=== PATIENT | male | born 1985 | race African-American/Black ===

== ENCOUNTER 2018-11-24 10:34 | Inpatient (IN) | payer OTHER ==
[2018-11-24 12:21] VITALS: BMI 22.4
--- NOTE | 2018-11-24 14:48 | HP ---
"CIWA Score - Admission Criteria [facility] Guidelines: Admission for Medically Managed Detox: Requires at least one of the followin. CIWA greater than 12 2. Seizures within the past 24 hours 3. Delirium tremens within the past 24 hours 4. Hallucinations within the past 24 hours 5. Acute intervention needed for co occurring medical disorder 6. Acute intervention needed for co occurring psychiatric disorder 7. Severe withdrawal that cannot be handled at a lower level of care (continued vomiting, continued diarrhea, abnormal vital signs) requiring intravenous medication and/or fluids 8. Admission ROS [facility] - HPI Allergies/Adverse Reactions: Allergies Allergy/AdvReac Type Severity Reaction Status Date / Time No Known Allergies Allergy Verified 11/24/18 12:15 History of Present Illness: pt here requesting rehab from etoh use , claims he was referred by outpt program , etoh use 2 pints/day since age 10 , latest use 1-2 week ago , went to detox , does not recall name . tobacco : 1/2 ppd cannabis : denies pmhx : chronic knee pain , asthma pshx : knee surgery , spine 2/2 scoliosis This report was requested by: Christy Medeiros | Reference #: [id number] Others' Prescriptions Patient Name: Jorje Henderson Date: 1985 Address: [place] [address] Sex: Male Rx Written Rx Dispensed Drug Quantity Days Supply Prescriber Name 08/17/2018 08/17/2018 chlordiazepoxide 25 mg capsule 24 5 Jesse Aiken) Patient Name: Jorje Henderson Date: 1985 Address: [place] [address] Sex: Male Rx Written Rx Dispensed Drug Quantity Days Supply Prescriber Name 03/15/2018 03/15/2018 chlordiazepoxide 25 mg capsule 8 2 Caleb Emanuel Exam Limitations: No Limitations - Ebola screening Have you traveled outside of the country in the last 21 days: No Have you had contact with anyone from an Ebola affected area: No Do you have a fever: No - Review of Systems Constitutional: No Symptoms Reported EENT: reports: No Symptoms Reported Respiratory: reports: No Symptoms reported Cardiac: reports: No Symptoms Reported GI: reports: No Symptoms Reported : reports: No Symptoms Reported Musculoskeletal: reports: Joint Pain (r knee chronic pain) Integumentary: reports: No Symptoms Reported Neuro: reports: No Symptoms reported Endocrine: reports: No Symptoms Reported Psychiatric: reports: Orientated x3 Patient History - Smoking Cessation Smoking history: Current every day smoker Have you smoked in the past 12 months: Yes Hx Chewing Tobacco Use: No Initiated information on smoking cessation: No - Substances abused Alcohol Substance route: Oral Frequency: Daily Amount used: 1 -2 PINTS [place] Age of first use: 10 Date of last use: 11/21/18 Admission Physical Exam [facility] - Vital Signs Vital Signs: Vital Signs - 24 hr 11/24/18 12:17 Temperature 97.8 F Pulse Rate 94 H Respiratory 16 Rate Blood Pressure 127/77 - Physical General Appearance: Yes: No Apparent Distress HEENTM: Yes: Normocephalic, Normal Voice Respiratory: Yes: Lungs Clear, Normal Breath Sounds, No Respiratory Distress, No Accessory Muscle Use Neck: Yes: No masses,lesions,Nodules, Trachea in good position Cardiology: Yes: Regular Rhythm, Regular Rate, S1, S2 Abdominal: Yes: Non Tender, Soft Musculoskeletal: Yes: Gait Steady Extremities: Yes: Normal Range of Motion, Non-Tender Neurological: Yes: Alert, Motor Strength 5/5, Normal Mood/Affect Integumentary: Yes: Warm - Diagnostic (1) Alcohol abuse Current Visit: Yes Status: Acute Breathalyzer - Breathalyzer Breathalyzer: 0 Urine Drug Screen - Test Device Lot number: [id number] Expiration date: 07/27/20 - Control Is test valid?: Yes - Results Drug screen NEGATIVE: No Urine drug screen results: THC-Marijuana Inpatient Rehab Admission - Rehab Decision to Admit Inpatient rehab admission?: No"
[2018-11-24] MEDS ORDERED: MAG HYDROX/AL HYDROX/SIMETH 30 ML UNIT-DOSE CUP PO PRN (15:00)
[2018-11-24] MEDS ORDERED: MENTHOL/PHENOL 1 EACH UD MM PRN (15:00)
[2018-11-24] MEDS ORDERED: MAGNESIUM CITRATE 300 ML BOTTLE PO PRN (15:00)
[2018-11-24] MEDS ORDERED: NICOTINE POLACRILEX 2 MG GUM BUC PRN (15:00)
[2018-11-24] MEDS ORDERED: guaiFENesin 200 MG/10 ML 10 ML UNIT-DOSE CUPS PO PRN (15:00)
[2018-11-24] MEDS ORDERED: IBUPROFEN 400 MG TABLET (FP) PO PRN (15:00)
[2018-11-24] MEDS ORDERED: MAGNESIUM HYDROX 2400MG/30ML ORAL SUSPENSION 30 ML CUP PO PRN (15:00)
[2018-11-24] MEDS ORDERED: ACETAMINOPHEN 325 MG TABLET (FP) PO PRN (15:00)
[2018-11-24] MEDS ORDERED: P-EPHED 60MG/TRIPROLIDI 2.5MG TABLET PO PRN (15:00)
[2018-11-24] MEDS ORDERED: ALBUTEROL SO4 0.083% IH SOL 2.5 MG/3 ML VIAL.NEB. NEB PRN (15:01)
[2018-11-24] MEDS ORDERED: TUBERCULIN PPD 5 TU/0.1ML VIAL ID ONE (16:41)
[2018-11-24 17:30] LABS: HEMATOCRIT 40.5 % (35.4-49); MCH 30.4 pg (25.7-33.7); MCHC 34.6 g/dl (32.0-35.9); MEAN CELL VOLUME 87.7 fl (80-96); MEAN PLT VOLUME 9.4 fl (7.5-11.1); PLATELET COUNT 179 K/MM3 (134-434); RBC 4.62 M/mm3 (4.00-5.60); RDW 14.3 % (11.9-15.9); WHITE BLOOD COUNT 7.8 K/mm3 (4.0-10.0)
[2018-11-24 17:41] LABS: ALBUMIN 4.2 g/dl (3.4-5.0); BLOOD UREA NITROGEN 15.9 mg/dL (7-18); CALCIUM 9.2 mg/dL (8.5-10.1); CREATININE 1.1 mg/dL (0.55-1.3); TOT PROT 7.7 g/dl (6.4-8.2)
[2018-11-24] MEDS: THIAMINE HCL 100 MG TABLET (FP) PO SCH (21:48)
[2018-11-24] MEDS: MELATONIN 5 MG TABLETS PO PRN (21:48)
[2018-11-25] MEDS: PRENATAL VITAMINS W/ FOLIC ACID TABLET (FP) PO SCH (10:30)
[2018-11-25] MEDS: THIAMINE HCL 100 MG TABLET (FP) PO SCH (21:53)
[2018-11-25] MEDS: MELATONIN 5 MG TABLETS PO PRN (21:53)
[2018-11-26 10:24] LABS: URINE APPEARANCE CLEAR; URINE BILIRUBIN NEGATIVE (NEGATIVE); URINE COLOR YELLOW; URINE GLUCOSE (UA) NEGATIVE (NEGATIVE); URINE KETONE NEGATIVE (NEGATIVE); URINE LEUK ESTERASE NEGATIVE (NEGATIVE); URINE NITRITE NEGATIVE (NEGATIVE); URINE PROTEIN NEGATIVE (NEGATIVE)
[2018-11-26] MEDS: PRENATAL VITAMINS W/ FOLIC ACID TABLET (FP) PO SCH (10:42)
[2018-11-26] MEDS: MELATONIN 5 MG TABLETS PO PRN (21:45)
[2018-11-26] MEDS: THIAMINE HCL 100 MG TABLET (FP) PO SCH (21:45)
[2018-11-26] MEDS: hydrOXYzine PAMOATE 25 MG CAPSULE (FP) PO PRN (21:46)
[2018-11-27] MEDS: PRENATAL VITAMINS W/ FOLIC ACID TABLET (FP) PO SCH (11:01)
--- NOTE | 2018-11-27 14:53 | PN ---
[facility] Progress Note Note: NEW PT ADMITTED TO REHAB ON 11/24/18 FROM C ADMISSIONS. PT C/O MUSCLE ACHES AND SPASMS. ALERT O X 3. OOB AMBULATING WITH STEADY GAIT. Vital Signs - 24 hr 11/27/18 11/27/18 11/27/18 00:30 03:30 07:01 Temperature 97.8 F Pulse Rate 55 L Respiratory 18 18 16 Rate Blood Pressure 135/80 Laboratory Tests 11/24/18 11/24/18 11/24/18 15:20 15:20 15:20 WBC 7.8 RBC 4.62 Hgb 14.0 Hct 40.5 MCV 87.7 MCH 30.4 MCHC 34.6 RDW 14.3 Plt Count 179 MPV 9.4 Sodium 137 Potassium 4.0 Chloride 104 Carbon Dioxide 27 Anion Gap 6 L BUN 15.9 Creatinine 1.1 Est GFR (CKD-EPI)AfAm 100.97 Est GFR (CKD-EPI)NonAf 87.12 Random Glucose 76 Calcium 9.2 Total Bilirubin 1.0 AST 24 ALT 25 Alkaline Phosphatase 58 Total Protein 7.7 Albumin 4.2 Urine Color Urine Appearance Urine pH Ur Specific [place] Urine Protein Urine Glucose (UA) Urine Ketones Urine Blood Urine Nitrite Urine Bilirubin Urine Urobilinogen Ur Leukocyte Esterase RPR Titer Nonreactive 11/26/18 08:00 WBC RBC Hgb Hct MCV MCH MCHC RDW Plt Count MPV Sodium Potassium Chloride Carbon Dioxide Anion Gap BUN Creatinine Est GFR (CKD-EPI)AfAm Est GFR (CKD-EPI)NonAf Random Glucose Calcium Total Bilirubin AST ALT Alkaline Phosphatase Total Protein Albumin Urine Color Yellow Urine Appearance Clear Urine pH 6.0 Ur Specific [place] 1.022 Urine Protein Negative Urine Glucose (UA) Negative Urine Ketones Negative Urine Blood Negative Urine Nitrite Negative Urine Bilirubin Negative Urine Urobilinogen 1.0 Ur Leukocyte Esterase Negative RPR Titer PLAN:ROBAXIN 500 MG PO TID PRN FOR MUSCLE SPASM. MOTRIN PRN FOR PAIN
[2018-11-27] MEDS: THIAMINE HCL 100 MG TABLET (FP) PO SCH (21:46)
[2018-11-27] MEDS: MELATONIN 5 MG TABLETS PO PRN (21:47)
[2018-11-27] MEDS: METHOCARBAMOL 500 MG TABLET PO PRN (21:47)
[2018-11-27] MEDS: hydrOXYzine PAMOATE 25 MG CAPSULE (FP) PO PRN (21:48)
[2018-11-28] MEDS: PRENATAL VITAMINS W/ FOLIC ACID TABLET (FP) PO SCH (11:23)
[2018-11-28] MEDS: THIAMINE HCL 100 MG TABLET (FP) PO SCH (21:44)
[2018-11-28] MEDS: MELATONIN 5 MG TABLETS PO PRN (21:45)
[2018-11-28] MEDS: hydrOXYzine PAMOATE 25 MG CAPSULE (FP) PO PRN (21:47)
[2018-11-29] MEDS: PRENATAL VITAMINS W/ FOLIC ACID TABLET (FP) PO SCH (10:20)
[2018-11-29] MEDS: MELATONIN 5 MG TABLETS PO PRN (21:38)
[2018-11-29] MEDS: THIAMINE HCL 100 MG TABLET (FP) PO SCH (21:38)
[2018-11-29] MEDS: hydrOXYzine PAMOATE 25 MG CAPSULE (FP) PO PRN (21:39)
[2018-11-30] MEDS: PRENATAL VITAMINS W/ FOLIC ACID TABLET (FP) PO SCH (10:19)
[2018-11-30] MEDS: THIAMINE HCL 100 MG TABLET (FP) PO SCH (21:24)
[2018-11-30] MEDS: hydrOXYzine PAMOATE 25 MG CAPSULE (FP) PO PRN (21:25)
[2018-11-30] MEDS: MELATONIN 5 MG TABLETS PO PRN (21:25)
[2018-12-01] MEDS: PRENATAL VITAMINS W/ FOLIC ACID TABLET (FP) PO SCH (10:24)
[2018-12-01] MEDS: hydrOXYzine PAMOATE 25 MG CAPSULE (FP) PO PRN (21:36)
[2018-12-01] MEDS: THIAMINE HCL 100 MG TABLET (FP) PO SCH (21:36)
[2018-12-01] MEDS: MELATONIN 5 MG TABLETS PO PRN (21:37)
[2018-12-02] MEDS: PRENATAL VITAMINS W/ FOLIC ACID TABLET (FP) PO SCH (10:04)
[2018-12-02] MEDS: THIAMINE HCL 100 MG TABLET (FP) PO SCH (21:30)
[2018-12-02] MEDS: MELATONIN 5 MG TABLETS PO PRN (21:30)
[2018-12-02] MEDS: METHOCARBAMOL 500 MG TABLET PO PRN (21:31)
[2018-12-03] MEDS: PRENATAL VITAMINS W/ FOLIC ACID TABLET (FP) PO SCH (10:18)
[2018-12-03] MEDS: MELATONIN 5 MG TABLETS PO PRN (21:53)
[2018-12-03] MEDS: THIAMINE HCL 100 MG TABLET (FP) PO SCH (21:53)
[2018-12-03] MEDS: METHOCARBAMOL 500 MG TABLET PO PRN (21:54)
[2018-12-04] MEDS: PRENATAL VITAMINS W/ FOLIC ACID TABLET (FP) PO SCH (10:59)
[2018-12-04] MEDS: THIAMINE HCL 100 MG TABLET (FP) PO SCH (22:00)
[2018-12-04] MEDS: METHOCARBAMOL 500 MG TABLET PO PRN (22:01)
[2018-12-04] MEDS: MELATONIN 5 MG TABLETS PO PRN (22:01)
[2018-12-05] MEDS: PRENATAL VITAMINS W/ FOLIC ACID TABLET (FP) PO SCH (10:54)
[2018-12-05] MEDS: THIAMINE HCL 100 MG TABLET (FP) PO SCH (22:01)
[2018-12-05] MEDS: MELATONIN 5 MG TABLETS PO PRN (22:03)
[2018-12-05] MEDS: METHOCARBAMOL 500 MG TABLET PO PRN (22:03)
[2018-12-06] MEDS: PRENATAL VITAMINS W/ FOLIC ACID TABLET (FP) PO SCH (10:54)
[2018-12-06] MEDS: THIAMINE HCL 100 MG TABLET (FP) PO SCH (21:53)
[2018-12-06] MEDS: MELATONIN 5 MG TABLETS PO PRN (21:53)
[2018-12-06] MEDS: METHOCARBAMOL 500 MG TABLET PO PRN (21:54)
[2018-12-07] MEDS: PRENATAL VITAMINS W/ FOLIC ACID TABLET (FP) PO SCH (10:53)
[2018-12-07] MEDS: MELATONIN 5 MG TABLETS PO PRN (22:08)
[2018-12-07] MEDS: METHOCARBAMOL 500 MG TABLET PO PRN (22:09)
[2018-12-07] MEDS: THIAMINE HCL 100 MG TABLET (FP) PO SCH (22:10)
[2018-12-08] MEDS: PRENATAL VITAMINS W/ FOLIC ACID TABLET (FP) PO SCH (11:20)
[2018-12-08] MEDS: MELATONIN 5 MG TABLETS PO PRN (22:04)
[2018-12-08] MEDS: METHOCARBAMOL 500 MG TABLET PO PRN (22:04)
[2018-12-08] MEDS: THIAMINE HCL 100 MG TABLET (FP) PO SCH (22:04)
[2018-12-09] MEDS: PRENATAL VITAMINS W/ FOLIC ACID TABLET (FP) PO SCH (10:37)
[2018-12-09] MEDS: THIAMINE HCL 100 MG TABLET (FP) PO SCH (22:11)
[2018-12-09] MEDS: MELATONIN 5 MG TABLETS PO PRN (22:12)
[2018-12-09] MEDS: METHOCARBAMOL 500 MG TABLET PO PRN (22:13)
[2018-12-10] MEDS: PRENATAL VITAMINS W/ FOLIC ACID TABLET (FP) PO SCH (10:41)
[2018-12-10] MEDS: THIAMINE HCL 100 MG TABLET (FP) PO SCH (21:57)
[2018-12-10] MEDS: MELATONIN 5 MG TABLETS PO PRN (21:57)
[2018-12-10] MEDS: METHOCARBAMOL 500 MG TABLET PO PRN (21:57)
[2018-12-11] MEDS: PRENATAL VITAMINS W/ FOLIC ACID TABLET (FP) PO SCH (10:34)
[2018-12-11] MEDS: MELATONIN 5 MG TABLETS PO PRN (21:59)
[2018-12-11] MEDS: THIAMINE HCL 100 MG TABLET (FP) PO SCH (21:59)
[2018-12-11] MEDS: METHOCARBAMOL 500 MG TABLET PO PRN (21:59)
[2018-12-12] MEDS: PRENATAL VITAMINS W/ FOLIC ACID TABLET (FP) PO SCH (10:29)
--- NOTE | 2018-12-12 14:39 | PN ---
[facility] Progress Note (SOAP) Subjective: Pt came to the nursing station and informed the nurses that he hit his right knee and was sent to be seen by this provider. This process description writer saw pt while at the nursing station and asked pt when that happened and pt responded that that he hit his right knee between his room table and chair yesterday at about 10' oclock p.m medication time . Pt was asked if he informed any staff but stated he did not until now when he is feeling uncomfortable while "sitting in dayroom and it got stiff". Objective: 12/12/18 14:38 Last Vital Signs Temp Pulse Resp BP Pulse Ox 97.5 F L 75 18 117/87 12/12/18 06:54 12/12/18 06:54 12/12/18 06:54 12/12/18 06:54 Extremities:Slight redness and swelling right inner knee. Walking with a limp. No e/c/c to all other areas. Assessment: 12/12/18 14:39 Right knee pain Plan: cold compress apply to right knee qshift motrin prn robaxin 500 mg po tid prn
[2018-12-12] MEDS: THIAMINE HCL 100 MG TABLET (FP) PO SCH (22:03)
[2018-12-12] MEDS: MELATONIN 5 MG TABLETS PO PRN (22:03)
[2018-12-13] MEDS: PRENATAL VITAMINS W/ FOLIC ACID TABLET (FP) PO SCH (10:50)
[2018-12-13] MEDS: MELATONIN 5 MG TABLETS PO PRN (21:58)
[2018-12-13] MEDS: THIAMINE HCL 100 MG TABLET (FP) PO SCH (21:59)
[2018-12-14] MEDS: PRENATAL VITAMINS W/ FOLIC ACID TABLET (FP) PO SCH (10:31)
--- NOTE | 2018-12-14 11:09 | PN ---
S Progress Note Note: XRAY RIGHT KNEE RESULT REVIEW AND MET WITH PT TO DISCUSS RESULT. Vital Signs - 24 hr 12/14/18 12/14/18 12/14/18 00:30 03:30 07:12 Temperature 97.7 F Pulse Rate 74 Respiratory 18 18 18 Rate Blood Pressure 115/74 XRAY RIGHT KNEE RESULT INDICATED:THERE IS NO SIGN OF FRACTURE OR SUBLUXATION AND NO SIGN OF BLASTIC OR LYTIC CHANGES. THERE IS CLOTHING ARTIFACT. THERE MAY BE ROBERT-STIEDA CHANGES. CORRELATION RECOMMENDED. PT REPORTS KNEE PAIN IMPROVEMENT. NO SWELLING NOTED. ACTIVE ROM. A:PAIN, RIGHT KNEE R/T PT BANGING KNEE AGAINST ROOM FURNITURE PLAN:D/W PT TO FOLOW UP WITH ORTHOPEDIC IF NOT BETTER AFTER REHAB. COPY OF XRAY PROVIDED IN D/C PACKAGE AFTER DISCHARGE. APPLY GORGE BANDAGE PRN APPLY ANALGESIC BALM TO RIGHT KNEE BID. PT AGREED TO ABOVE POC.
[2018-12-14] MEDS: METHYL SALICYLATE/MENTHOL OINT 30 GM TUBE TP SCH ×2 (12:31→22:15)
[2018-12-14] MEDS: THIAMINE HCL 100 MG TABLET (FP) PO SCH (22:14)
[2018-12-15 06:45] VITALS: BP 108/72; PULSE 70; TEMP 98.3
--- NOTE | 2018-12-15 07:54 | PN ---
[facility] Progress Note (SOAP) Subjective: PT COMPLETED REHAB AND DISCHARGED TODAY. WHILE IN REHAB, PT ATTENDED AND PARTICIPATED IN UNIT GROUPS AND ACTIVITIES WELL COMPLETED INDIVIDUAL ASSIGNMENTS. PT MET WITH HIS COUNSELOR AND HAS BEEN REFERRED TO [facility] ON [address], [place] FOR CD AFTERCARE. PT REPORTS HE HAS PRIMARY CARE AT [facility] ON [address], [place]. PT IS ALERT O X 3. DENIES S/H/I. Objective: 12/15/18 07:54 Vital Signs - 24 hr 12/15/18 12/15/18 12/15/18 00:30 03:30 06:45 Temperature 98.3 F Pulse Rate 70 Respiratory 18 18 18 Rate Blood Pressure 108/72 Laboratory Tests 11/24/18 11/24/18 11/24/18 15:20 15:20 15:20 WBC 7.8 RBC 4.62 Hgb 14.0 Hct 40.5 MCV 87.7 MCH 30.4 MCHC 34.6 RDW 14.3 Plt Count 179 MPV 9.4 Sodium 137 Potassium 4.0 Chloride 104 Carbon Dioxide 27 Anion Gap 6 L BUN 15.9 Creatinine 1.1 Est GFR (CKD-EPI)AfAm 100.97 Est GFR (CKD-EPI)NonAf 87.12 Random Glucose 76 Calcium 9.2 Total Bilirubin 1.0 AST 24 ALT 25 Alkaline Phosphatase 58 Total Protein 7.7 Albumin 4.2 Urine Color Urine Appearance Urine pH Ur Specific [place] Urine Protein Urine Glucose (UA) Urine Ketones Urine Blood Urine Nitrite Urine Bilirubin Urine Urobilinogen Ur Leukocyte Esterase RPR Titer Nonreactive 11/26/18 08:00 WBC RBC Hgb Hct MCV MCH MCHC RDW Plt Count MPV Sodium Potassium Chloride Carbon Dioxide Anion Gap BUN Creatinine Est GFR (CKD-EPI)AfAm Est GFR (CKD-EPI)NonAf Random Glucose Calcium Total Bilirubin AST ALT Alkaline Phosphatase Total Protein Albumin Urine Color Yellow Urine Appearance Clear Urine pH 6.0 Ur Specific [place] 1.022 Urine Protein Negative Urine Glucose (UA) Negative Urine Ketones Negative Urine Blood Negative Urine Nitrite Negative Urine Bilirubin Negative Urine Urobilinogen 1.0 Ur Leukocyte Esterase Negative RPR Titer 12/15/18 08:24 Home Medications Medication Instructions Recorded Albuterol Sulfate Inhaler - 11/24/18 Assessment: 12/15/18 07:54 NAD MEDICALLY STABLE 12/15/18 08:26 [facility] Inpatient Services Medical - Diagnosis (1) Knee pain, acute Qualifiers: Laterality: right Qualified Code(s): M25.561 - Pain in right knee Current Visit: Yes Status: Acute (2) Alcohol dependence Qualifiers: Substance use status: uncomplicated Qualified Code(s): F10.20 - Alcohol dependence, uncomplicated Current Visit: Yes Status: Chronic (3) Chronic knee pain Qualifiers: Laterality: unspecified laterality Qualified Code(s): M25.569 - Pain in unspecified knee; G89.29 - Other chronic pain Current Visit: Yes Status: Chronic (4) Asthma Qualifiers: Asthma severity: unspecified severity Asthma persistence: unspecified Asthma complication type: uncomplicated Qualified Code(s): J45.909 - Unspecified asthma, uncomplicated Current Visit: Yes Status: Chronic Plan: FOLLOW UP WITH CD AFTERCARE RECOMMENDED. FOLLOW UP WITH PCP FOR MEDICAL MANAGEMENT INDICATED ABOVE WITHIN 1-2 WEEKS
[2018-12-15] MEDS: METHYL SALICYLATE/MENTHOL OINT 30 GM TUBE TP SCH (09:51)
[2018-12-15] MEDS: PRENATAL VITAMINS W/ FOLIC ACID TABLET (FP) PO SCH (09:51)
== END 2018-12-15 09:45 | disposition home or self-care (01) | DRG 772 ==
LOC: YASAS 10:34 → Y5N 15:49
PROVIDERS: ADMIT Neuromusculoskeletal Medicine & OMM; ATTEND Neuromusculoskeletal Medicine & OMM
PROC: HZ42ZZZ Group Counseling for Substance Abuse Treatment, Cognitive-Behavioral (ICD-10-PCS; principal; 2018-11-24)
DX: F10.20 Alcohol dependence, uncomplicated (principal); F17.210 Nicotine dependence, cigarettes, uncomplicated; J45.909 Unspecified asthma, uncomplicated; M25.569 Pain in unspecified knee; G89.29 Other chronic pain; M25.561 Pain in right knee; W22.8XXA Striking against or struck by other objects, initial encounter; Y93.9 Activity, unspecified; Y92.239 Unspecified place in hospital as the place of occurrence of the external cause
CPT/HCPCS: 36415; 73562-TC-RT-FY; 80053; 81003; 85027; 86593